=== PATIENT | male | born 1970 | race African-American/Black ===

== ENCOUNTER 2019-05-08 15:50 | Inpatient (IN) | payer MEDICAID ==
[~2019-05-08] VITALS: Ht 175.3 cm; Wt 94.7 kg
[~2019-05-08 15:50] MED LIST: ACYC-57 PO; ALBU0.63 NEB; AMLO10TA8 PO; ASPI-496 PO; ASPI-650 PO; ATOR40TA PO; ATOR40TA78 PO; CARV-39 PO; CARV12.543 PO; CHOL10002 PO; CHOL200074 PO; FURO20TA3 PO; GLIP5TAB10 PO; HYDR-3342 PO; HYDR-3653 PO; HYDR100T25 PO; INSU100I11 SC; LISI-170 PO; LISI-467 PO; METF500T17 PO; NPH,100V5 SC; SPIR25TA PO; SPIR25TA5 PO; Will bring DOS
--- NOTE | 2019-05-08 16:11 | NUR ---
MINNIE. REPORT RECEIVED FROM EMS. PT WENT TO D/T BILATERAL SHOURDER PAIN RADIATING TO BACK AND GENERALIZED WEAKNESS X 2 DAYS. EKG SHOWED ACUTE ME AT , THEN TRANSFFERED. 324 ASPIRIN GIVEN AT . NS INFUSING AT THIS TIME. EKG DONE AT BEDSIDE BY EMT. ALL MONITORS IN PLACE. CALL LIGHT WITHIN REACH. HX OF CHF/PE/DM. PT HAS PACEMAKER. EDMD AT BEDSIDE TO EVALUATE AT THIS TIME.
--- NOTE | 2019-05-08 16:19 | NUR ---
BS >600 AT THIS TIME.
[2019-05-08 16:41] LABS: BASOPHILS # (AUTO) 0.01 x10^3/uL (0-0.1); BASOPHILS % (AUTO) 0 % (0-1); EOSINOPHILS # (AUTO) 0.05 x10^3/uL (0-0.4); EOSINOPHILS % (AUTO) 1 % (1-7); LYMPHOCYTES # (AUTO) 0.79 x10^3/uL (1-3.4); LYMPHOCYTES % (AUTO) 13 % (22-44); MD NO; MEAN CORPUSCULAR HEMOGLOBIN 31.5 pg (27.5-34.5); MEAN CORPUSCULAR VOLUME 92.8 fL (81-97); MEAN PLATELET VOLUME 9.1 fL (7.4-10.4); MONOCYTES # (AUTO) 0.42 x10^3/uL (0.2-0.8); MONOCYTES % (AUTO) 7 % (2-9); NEUTROPHILS # (AUTO) 4.69 x10^3/uL (1.8-6.8); NEUTROPHILS % (AUTO) 79 % (42-75); PLATELET COUNT 143 x10^3/uL (130-400); RED BLOOD COUNT 5.14 x10^6/uL (4.38-5.82); RED CELL DISTRIBUTION WIDTH 13.7 % (9.4-14.8)
[2019-05-08] MEDS ORDERED: RIVA20TA PO (16:49)
[2019-05-08] MEDS ORDERED: ISOS60TA36 PO (16:49)
[2019-05-08 16:52] LABS: ALBUMIN 3.8 g/dL (3.4-5.0); ANION GAP 13 mmol/L (5-15); CHLORIDE 85 mmol/L (98-107); D-DIMER 0.25 ug/mlFEU (0.00-0.52); INTERNATIONAL NORMALIZED RATIO 1.15 (0.93-1.1); PROTHROMBIN TIME 12.2 Seconds (9.6-11.5)
[2019-05-08 16:58] LABS: ALANINE AMINOTRANSFERASE 25 U/L (12-78); ALKALINE PHOSPHATASE 113 U/L (45-117); BILIRUBIN,TOTAL 2.5 mg/dL (0.2-1.0); CREATININE 2.62 mg/dL (0.7-1.3); TOTAL PROTEIN 8.5 g/dL (6.4-8.2); TROPONIN I 0.078 ng/mL (0.000-0.045)
[2019-05-08 17:13] LABS: O2 FLOW ROOM AIR L/min; PH, VENOUS 7.269 pH (7.320-7.420)
--- NOTE | 2019-05-08 17:13 | NUR ---
critical:sodium 115/potassium 6.7/bg 890 edmd notified.
[2019-05-08 17:14] LABS: ACETONE, SERUM Moderate(40mg/dL) mg/dL (Negative)
--- NOTE | 2019-05-08 17:14 | NUR ---
urinal at bedside.
[2019-05-08] MEDS ORDERED: CALCIUM GLUCONATE 0.46MEQ/1ML IVPush ONE (17:30)
[2019-05-08] MEDS ORDERED: CALCIUM GLUCONATE 4.6 MEQ/10 ML ONE (17:32)
[2019-05-08] MEDS ORDERED: REGULAR INSULIN 100 UNITS in SODIUM CHLORIDE 0.9% 99 ML IV PRN ×2 (17:34→18:45)
--- NOTE | 2019-05-08 17:37 | NUR ---
PT MEDICATED PER EMAR. PT TOLERATED WELL.
[2019-05-08] MEDS ORDERED: SODIUM CHLORIDE 0.9% 1,000ML IVBOLUS ONE (18:00)
--- NOTE | 2019-05-08 18:04 | NUR ---
report given to laly ragsdale.
--- NOTE | 2019-05-08 18:30 | NUR ---
SBAR RPT RECD FROM [facility] AND PT CARE ASSUMED AT 181. POC DISCUSSED WITH DR SY. PT TO RECIEVE 1 LITER BOLUS OF NS AND ALSO I AM TO START PTS INSULIN GTT AT ORDERED RATE. 2ND PIV ESTABLISHED AND INSULIN GTT STARTED DOSE DOUBLE CHECKED ABBE EPSTEIN RN. PT 88KG GTT STARTED AT 9UNITS /HR. SB[facility] RPT CALLED TO [facility].
--- NOTE | 2019-05-08 18:39 | NUR ---
HOSPITALIST AT BEDSIDE.
--- NOTE | 2019-05-08 18:42 | NUR ---
MAYURAR RPT TO [facility]
[2019-05-08] MEDS ORDERED: ONDANSETRON 2MG/ML, 2ML IVPush PRN (19:00)
[2019-05-08 19:33] LABS: MICROSCOPIC NOT IND
[2019-05-08] MEDS ORDERED: CARVEDILOL 12.5 MG TABLET ONE (20:54)
[2019-05-08] MEDS ORDERED: CARVEDILOL 25 MG TABLET PO SCH (21:00)
[2019-05-08] MEDS ORDERED: SODIUM CHLORIDE 0.9% 1,000 ML IV SCH (21:30)
[2019-05-08 21:43] LABS: ANION GAP 13 mmol/L (5-15); CALCIUM 8.9 mg/dL (8.5-10.1); CHLORIDE 95 mmol/L (98-107); CREATININE 2.52 mg/dL (0.7-1.3)
[2019-05-08 21:51] LABS: RAPID INFLUENZA A Negative (Negative); RAPID INFLUENZA B Negative (Negative)
[2019-05-09] MEDS: HYDROcodone/APAP 5/325 TABLET PO PRN (00:07)
[2019-05-09 01:18] LABS: ANION GAP 9 mmol/L (5-15); CALCIUM 8.9 mg/dL (8.5-10.1); CHLORIDE 101 mmol/L (98-107); CREATININE 2.51 mg/dL (0.7-1.3)
[2019-05-09] MEDS ORDERED: D5%-0.45% NACL 1,000 ML IV SCH (03:30)
[2019-05-09 04:25] VITALS: BP 84/46
[2019-05-09 05:04] LABS: TROPONIN I 0.106 ng/mL (0.000-0.045)
[2019-05-09 05:34] LABS: ANION GAP 8 mmol/L (5-15); CALCIUM 8.8 mg/dL (8.5-10.1); CHLORIDE 106 mmol/L (98-107); CREATININE 2.55 mg/dL (0.7-1.3)
[2019-05-09] MEDS: ISOSORBIDE MONONITRATE ER 60 MG TABLET PO SCH (09:00)
[2019-05-09] MEDS: CARVEDILOL 25 MG TABLET PO SCH ×2 (09:00→21:00)
[2019-05-09] MEDS: RIVAROXABAN 20 MG TABLET PO SCH (09:00)
[2019-05-09] MEDS ORDERED: GLUCAGON 1 MG IM PRN (10:00)
[2019-05-09] MEDS ORDERED: DEXTROSE 50%, 50ML SYRINGE IVPush PRN (10:00)
[2019-05-09] MEDS ORDERED: DEXTROSE 4 GM TAB.CHEW PO PRN (10:00)
[2019-05-09] MEDS: NYSTATIN 500,000 UNITS/5 ML UDC PO SCH ×3 (10:40→22:12)
[2019-05-09] MEDS: INSULIN GLARGINE 100 UNITS/ML, PEN SQ-INSULIN SCH ×2 (10:42→22:12)
[2019-05-09] MEDS: INSULIN LISPRO 100 UNITS/ML, PEN SQ-INSULIN SCH ×3 (11:39→22:12)
[2019-05-09 21:00] VITALS: BP 127/82
[2019-05-09] MEDS: SODIUM CHLORIDE FLUSH 10ML SYR IVF SCH (22:13)
[2019-05-09 23:22] LABS: ANION GAP 8 mmol/L (5-15); CALCIUM 8.6 mg/dL (8.5-10.1); CHLORIDE 99 mmol/L (98-107); CREATININE 1.75 mg/dL (0.7-1.3)
[2019-05-09] MEDS ORDERED: LACTATED RINGERS 500 ML IVBOLUS ONE (23:30)
[2019-05-10 02:00] VITALS: BP 121/76
[2019-05-10] MEDS: NYSTATIN 500,000 UNITS/5 ML UDC PO SCH ×4 (05:51→20:25)
[2019-05-10 06:09] LABS: BASOPHILS # (AUTO) 0.02 x10^3/uL (0-0.1); BASOPHILS % (AUTO) 0 % (0-1); EOSINOPHILS # (AUTO) 0.07 x10^3/uL (0-0.4); EOSINOPHILS % (AUTO) 2 % (1-7); LYMPHOCYTES % (AUTO) 22 % (22-44); MD NO; MEAN CORPUSCULAR HGB CONC 34.4 g/dL (33.2-36.2); MEAN PLATELET VOLUME 8.7 fL (7.4-10.4); MONOCYTES # (AUTO) 0.63 x10^3/uL (0.2-0.8); MONOCYTES % (AUTO) 14 % (2-9); NEUTROPHILS # (AUTO) 2.89 x10^3/uL (1.8-6.8); NEUTROPHILS % (AUTO) 63 % (42-75); PLATELET COUNT 132 x10^3/uL (130-400); RED BLOOD COUNT 4.84 x10^6/uL (4.38-5.82); RED CELL DISTRIBUTION WIDTH 14.1 % (9.4-14.8)
[2019-05-10 06:17] LABS: CHLORIDE 105 mmol/L (98-107)
[2019-05-10 06:18] LABS: ALBUMIN 3.2 g/dL (3.4-5.0); ANION GAP 7 mmol/L (5-15)
[2019-05-10 06:21] LABS: ALANINE AMINOTRANSFERASE 25 U/L (12-78); ALKALINE PHOSPHATASE 86 U/L (45-117); BILIRUBIN,TOTAL 1.8 mg/dL (0.2-1.0); CREATININE 1.34 mg/dL (0.7-1.3); TOTAL PROTEIN 7.3 g/dL (6.4-8.2)
[2019-05-10] MEDS: INSULIN LISPRO 100 UNITS/ML, PEN SQ-INSULIN SCH ×3 (07:00→20:26)
[2019-05-10] MEDS: SODIUM CHLORIDE FLUSH 10ML SYR IVF SCH ×2 (08:24→20:26)
[2019-05-10] MEDS: ISOSORBIDE MONONITRATE ER 60 MG TABLET PO SCH (08:27)
[2019-05-10] MEDS: RIVAROXABAN 20 MG TABLET PO SCH (08:27)
[2019-05-10] MEDS: INSULIN GLARGINE 100 UNITS/ML, PEN SQ-INSULIN SCH ×2 (08:30→20:27)
[2019-05-10] MEDS: CARVEDILOL 25 MG TABLET PO SCH ×2 (09:00→20:25)
[2019-05-10 09:20] VITALS: BP 91/60
[2019-05-10] MEDS ORDERED: INSULIN LISPRO 100 UNIT/ML, 3ML VIAL SQ-INSULIN ONE (11:30)
[2019-05-10 13:06] VITALS: BP 104/67
[2019-05-10 19:18] VITALS: BP 111/70
[2019-05-10] MEDS ORDERED: INSULIN GLARGINE 100 UNITS/ML, PEN SQ-INSULIN SCH (21:00)
[2019-05-11 01:38] VITALS: BP 99/61
[2019-05-11 05:09] LABS: BASOPHILS # (AUTO) 0.02 x10^3/uL (0-0.1); BASOPHILS % (AUTO) 1 % (0-1); EOSINOPHILS # (AUTO) 0.07 x10^3/uL (0-0.4); EOSINOPHILS % (AUTO) 2 % (1-7); LYMPHOCYTES # (AUTO) 1.28 x10^3/uL (1-3.4); LYMPHOCYTES % (AUTO) 30 % (22-44); MD NO; MEAN CORPUSCULAR HEMOGLOBIN 31.4 pg (27.5-34.5); MEAN CORPUSCULAR HGB CONC 33.8 g/dL (33.2-36.2); MEAN PLATELET VOLUME 8.6 fL (7.4-10.4); MONOCYTES # (AUTO) 0.53 x10^3/uL (0.2-0.8); MONOCYTES % (AUTO) 12 % (2-9); NEUTROPHILS # (AUTO) 2.42 x10^3/uL (1.8-6.8); NEUTROPHILS % (AUTO) 56 % (42-75); PLATELET COUNT 124 x10^3/uL (130-400); RED CELL DISTRIBUTION WIDTH 14.3 % (9.4-14.8)
[2019-05-11 05:20] LABS: CHLORIDE 106 mmol/L (98-107)
[2019-05-11 05:26] LABS: ANION GAP 6 mmol/L (5-15); CALCIUM 8.5 mg/dL (8.5-10.1); CREATININE 1.01 mg/dL (0.7-1.3)
[2019-05-11] MEDS: NYSTATIN 500,000 UNITS/5 ML UDC PO SCH ×4 (05:43→21:06)
[2019-05-11] MEDS: CARVEDILOL 25 MG TABLET PO SCH ×2 (08:18→21:14)
[2019-05-11] MEDS: ISOSORBIDE MONONITRATE ER 60 MG TABLET PO SCH (08:18)
[2019-05-11] MEDS: RIVAROXABAN 20 MG TABLET PO SCH (08:18)
[2019-05-11] MEDS: SODIUM CHLORIDE FLUSH 10ML SYR IVF SCH ×2 (08:19→21:07)
[2019-05-11] MEDS: INSULIN GLARGINE 100 UNITS/ML, PEN SQ-INSULIN SCH ×2 (08:20→21:04)
[2019-05-11] MEDS: INSULIN LISPRO 100 UNITS/ML, PEN SQ-INSULIN SCH ×4 (08:20→21:06)
[2019-05-11 08:51] VITALS: BP 100/63
[2019-05-11 13:21] VITALS: BP 113/68
[2019-05-11] MEDS: HYDROcodone/APAP 5/325 TABLET PO PRN (18:21)
[2019-05-11 19:21] VITALS: BP 110/66
[2019-05-12 01:10] VITALS: BP 132/68
[2019-05-12] MEDS: NYSTATIN 500,000 UNITS/5 ML UDC PO SCH ×4 (05:26→21:00)
[2019-05-12 06:29] LABS: BASOPHILS # (AUTO) 0.02 x10^3/uL (0-0.1); BASOPHILS % (AUTO) 1 % (0-1); EOSINOPHILS # (AUTO) 0.08 x10^3/uL (0-0.4); EOSINOPHILS % (AUTO) 2 % (1-7); LYMPHOCYTES # (AUTO) 1.52 x10^3/uL (1-3.4); LYMPHOCYTES % (AUTO) 33 % (22-44); MD NO; MEAN CORPUSCULAR HEMOGLOBIN 31.3 pg (27.5-34.5); MEAN CORPUSCULAR HGB CONC 33.4 g/dL (33.2-36.2); MEAN CORPUSCULAR VOLUME 93.6 fL (81-97); MEAN PLATELET VOLUME 8.1 fL (7.4-10.4); MONOCYTES # (AUTO) 0.54 x10^3/uL (0.2-0.8); MONOCYTES % (AUTO) 12 % (2-9); NEUTROPHILS # (AUTO) 2.49 x10^3/uL (1.8-6.8); NEUTROPHILS % (AUTO) 54 % (42-75); PLATELET COUNT 135 x10^3/uL (130-400); RED BLOOD COUNT 4.48 x10^6/uL (4.38-5.82); RED CELL DISTRIBUTION WIDTH 14.4 % (9.4-14.8)
[2019-05-12 06:39] LABS: ANION GAP 3 mmol/L (5-15); CALCIUM 8.4 mg/dL (8.5-10.1); CHLORIDE 107 mmol/L (98-107); CREATININE 1.03 mg/dL (0.7-1.3)
[2019-05-12 07:20] VITALS: BP 125/77
[2019-05-12] MEDS: INSULIN GLARGINE 100 UNITS/ML, PEN SQ-INSULIN SCH ×2 (08:37→21:01)
[2019-05-12] MEDS: INSULIN LISPRO 100 UNITS/ML, PEN SQ-INSULIN SCH ×4 (08:37→21:01)
[2019-05-12] MEDS: SODIUM CHLORIDE FLUSH 10ML SYR IVF SCH ×2 (08:37→20:32)
[2019-05-12] MEDS: LISINOPRIL 10 MG TABLET PO SCH (08:41)
[2019-05-12] MEDS: CARVEDILOL 25 MG TABLET PO SCH ×2 (08:41→21:00)
[2019-05-12] MEDS: RIVAROXABAN 20 MG TABLET PO SCH (08:42)
[2019-05-12] MEDS: SPIRONOLACTONE 25 MG TABLET PO SCH (08:42)
[2019-05-12] MEDS: ISOSORBIDE MONONITRATE ER 60 MG TABLET PO SCH (08:42)
[2019-05-12 13:40] VITALS: BP 104/61
[2019-05-12 19:05] LABS: MICROSCOPIC INDICATED
[2019-05-12 19:18] LABS: CULTURE INDICATED? NO
[2019-05-12 19:44] VITALS: BP 105/66
[2019-05-12 20:59] VITALS: BP 116/75
[2019-05-12] MEDS ORDERED: INSULIN GLARGINE 100 UNITS/ML, PEN SQ-INSULIN SCH (21:00)
[2019-05-12] MEDS: HYDROcodone/APAP 5/325 TABLET PO PRN (21:02)
[2019-05-13 00:57] VITALS: BP 143/93
[2019-05-13 04:46] LABS: ANION GAP 7 mmol/L (5-15); CALCIUM 8.1 mg/dL (8.5-10.1); CHLORIDE 106 mmol/L (98-107)
[2019-05-13] MEDS: NYSTATIN 500,000 UNITS/5 ML UDC PO SCH ×5 (06:04→21:13)
[2019-05-13] MEDS: INSULIN LISPRO 100 UNITS/ML, PEN SQ-INSULIN SCH ×2 (08:28→12:06)
[2019-05-13] MEDS: HYDROcodone/APAP 5/325 TABLET PO PRN ×2 (08:28→21:12)
[2019-05-13] MEDS: INSULIN GLARGINE 100 UNITS/ML, PEN SQ-INSULIN SCH (08:29)
[2019-05-13] MEDS: SPIRONOLACTONE 25 MG TABLET PO SCH (08:30)
[2019-05-13] MEDS: FUROSEMIDE 40 MG TABLET PO SCH (08:30)
[2019-05-13] MEDS: RIVAROXABAN 20 MG TABLET PO SCH (08:30)
[2019-05-13] MEDS: SODIUM CHLORIDE FLUSH 10ML SYR IVF SCH ×2 (08:34→21:13)
[2019-05-13] MEDS: LISINOPRIL 10 MG TABLET PO SCH (08:34)
[2019-05-13] MEDS: ISOSORBIDE MONONITRATE ER 60 MG TABLET PO SCH (08:35)
[2019-05-13] MEDS: CARVEDILOL 25 MG TABLET PO SCH ×2 (08:35→21:14)
[2019-05-13 08:36] VITALS: BP 149/90
[2019-05-13] MEDS ORDERED: SPIRONOLACTONE 50 MG TABLET PO SCH (09:00)
[2019-05-13 14:37] VITALS: BP 114/71
[2019-05-13] MEDS: INSULIN LISPRO 100 UNIT/ML, 3ML VIAL SQ-INSULIN SCH (17:38)
[2019-05-13 19:14] VITALS: BP 136/83
[2019-05-13] MEDS ORDERED: INSULIN GLARGINE 100 UNITS/ML, PEN SQ-INSULIN SCH (21:00)
[2019-05-14 02:32] VITALS: BP 103/61
[2019-05-14] MEDS: NYSTATIN 500,000 UNITS/5 ML UDC PO SCH ×4 (05:21→21:28)
[2019-05-14 07:28] VITALS: BP 119/82
[2019-05-14] MEDS: INSULIN LISPRO 100 UNIT/ML, 3ML VIAL SQ-INSULIN SCH (08:29)
[2019-05-14] MEDS ORDERED: INSULIN GLARGINE 100 UNITS/ML, PEN SQ-INSULIN SCH ×3 (09:00→21:00)
[2019-05-14] MEDS: CARVEDILOL 25 MG TABLET PO SCH ×2 (09:13→19:51)
[2019-05-14] MEDS: RIVAROXABAN 20 MG TABLET PO SCH (09:14)
[2019-05-14] MEDS: LISINOPRIL 10 MG TABLET PO SCH (09:14)
[2019-05-14] MEDS: SPIRONOLACTONE 25 MG TABLET PO SCH (09:14)
[2019-05-14] MEDS: ISOSORBIDE MONONITRATE ER 60 MG TABLET PO SCH (09:14)
[2019-05-14] MEDS: FUROSEMIDE 40 MG TABLET PO SCH (09:14)
[2019-05-14] MEDS: SODIUM CHLORIDE FLUSH 10ML SYR IVF SCH ×2 (09:16→21:28)
[2019-05-14] MEDS: INSULIN LISPRO 100 UNITS/ML, PEN SQ-INSULIN SCH ×2 (11:26→21:30)
[2019-05-14 12:54] VITALS: BP 102/61
[2019-05-14] MEDS ORDERED: HYDROCORTISONE CRM 2.5%, 20GM TP PRN (17:00)
[2019-05-14] MEDS ORDERED: INSULIN LISPRO 100 UNIT/ML, 3ML VIAL SQ-INSULIN SCH (17:30)
[2019-05-14 19:23] VITALS: BP 115/73
[2019-05-14] MEDS: HYDROcodone/APAP 5/325 TABLET PO PRN (19:50)
[2019-05-15 02:21] VITALS: BP 108/71
[2019-05-15] MEDS: NYSTATIN 500,000 UNITS/5 ML UDC PO SCH ×3 (06:00→16:00)
[2019-05-15 07:25] VITALS: BP 133/82
[2019-05-15] MEDS: INSULIN LISPRO 100 UNITS/ML, PEN SQ-INSULIN SCH ×3 (08:06→16:00)
[2019-05-15] MEDS: LISINOPRIL 10 MG TABLET PO SCH (08:19)
[2019-05-15] MEDS: RIVAROXABAN 20 MG TABLET PO SCH (08:19)
[2019-05-15] MEDS: SPIRONOLACTONE 25 MG TABLET PO SCH (08:19)
[2019-05-15] MEDS ORDERED: INSULIN GLARGINE 100 UNITS/ML, PEN SQ-INSULIN SCH ×2 (08:30→09:00)
[2019-05-15 08:47] LABS: BASOPHILS # (AUTO) 0.02 x10^3/uL (0-0.1); BASOPHILS % (AUTO) 1 % (0-1); EOSINOPHILS # (AUTO) 0.08 x10^3/uL (0-0.4); EOSINOPHILS % (AUTO) 2 % (1-7); LYMPHOCYTES # (AUTO) 1.27 x10^3/uL (1-3.4); LYMPHOCYTES % (AUTO) 31 % (22-44); MD NO; MEAN CORPUSCULAR HEMOGLOBIN 31.7 pg (27.5-34.5); MEAN CORPUSCULAR HGB CONC 33.9 g/dL (33.2-36.2); MEAN CORPUSCULAR VOLUME 93.6 fL (81-97); MEAN PLATELET VOLUME 7.9 fL (7.4-10.4); MONOCYTES # (AUTO) 0.61 x10^3/uL (0.2-0.8); MONOCYTES % (AUTO) 15 % (2-9); NEUTROPHILS # (AUTO) 2.13 x10^3/uL (1.8-6.8); NEUTROPHILS % (AUTO) 52 % (42-75); PLATELET COUNT 195 x10^3/uL (130-400); RED BLOOD COUNT 4.67 x10^6/uL (4.38-5.82); RED CELL DISTRIBUTION WIDTH 14.9 % (9.4-14.8)
[2019-05-15 08:52] LABS: ANION GAP 5 mmol/L (5-15); CALCIUM 8.7 mg/dL (8.5-10.1); CHLORIDE 108 mmol/L (98-107)
[2019-05-15 08:55] LABS: ALANINE AMINOTRANSFERASE 43 U/L (12-78); ALKALINE PHOSPHATASE 84 U/L (45-117); CREATININE 0.96 mg/dL (0.7-1.3)
[2019-05-15] MEDS: SODIUM CHLORIDE FLUSH 10ML SYR IVF SCH (09:00)
[2019-05-15] MEDS: CARVEDILOL 25 MG TABLET PO SCH (09:10)
[2019-05-15] MEDS: ISOSORBIDE MONONITRATE ER 60 MG TABLET PO SCH (09:11)
[2019-05-15] MEDS: FUROSEMIDE 40 MG TABLET PO SCH (09:11)
[2019-05-15] MEDS ORDERED: METF500T17 PO (13:33)
[2019-05-15] MEDS ORDERED: FURO40TA6 PO (13:33)
[2019-05-15] MEDS ORDERED: INSU100I11 SQ-INSULIN ×2 (13:33)
[2019-05-15] MEDS ORDERED: LISI-167 PO (13:33)
[2019-05-15] MEDS ORDERED: SPIR25TA PO (13:33)
[2019-05-15] MEDS ORDERED: INSU100C SQ-INSULIN (13:40)
[2019-05-15 13:54] VITALS: BP 127/75
== END 2019-05-15 16:45 | disposition home or self-care (01) | DRG 720 ==
LOC: ED 17:33 → EDIP 17:34 → ED 18:00 → ICU 19:00 → 5SO 05-09 20:03 → 4NW 05-13 10:50
PROVIDERS: ADMIT Internal Medicine; ATTEND Hospitalist
DX: A41.9 Sepsis, unspecified organism (principal); I21.A1 Myocardial infarction type 2; N17.0 Acute kidney failure with tubular necrosis; I11.0 Hypertensive heart disease with heart failure; I50.20 Unspecified systolic (congestive) heart failure; E11.10 Type 2 diabetes mellitus with ketoacidosis without coma; B37.0 Candidal stomatitis; E11.21 Type 2 diabetes mellitus with diabetic nephropathy; E87.1 Hypo-osmolality and hyponatremia; Z88.5 Allergy status to narcotic agent; Z88.8 Allergy status to other drugs, medicaments and biological substances; E87.5 Hyperkalemia; I25.10 Atherosclerotic heart disease of native coronary artery without angina pectoris; I44.7 Left bundle-branch block, unspecified; I48.91 Unspecified atrial fibrillation; Z79.01 Long term (current) use of anticoagulants; Z79.84 Long term (current) use of oral hypoglycemic drugs; Z79.899 Other long term (current) drug therapy; Z86.718 Personal history of other venous thrombosis and embolism; Z86.73 Personal history of transient ischemic attack (TIA), and cerebral infarction without residual deficits; Z91.19 Patient's noncompliance with other medical treatment and regimen; Z95.0 Presence of cardiac pacemaker; Z95.828 Presence of other vascular implants and grafts; Z79.82 Long term (current) use of aspirin
CPT/HCPCS: 36415; 71045; 80048; 80053; 81001; 81003; 82010; 82803; 82947; 82962; 83036; 83605; 83735; 83880; 83930; 84100; 84145; 84484; 85025; 85379; 85610; 85730; 87081; 87400; 87880; 93005; 93306; 96374; 96375; G0378; J2405; J7120; J1815; J1817; J7030